=== PATIENT | male | born 1970 | race Caucasian/White ===

== ENCOUNTER → 2021-12-23 | Day surgery (SDC) | payer OTHER ==
[~2021-12-23] VITALS: Ht 188 cm; Wt 111.0 kg
[~2021-12-23] MED LIST: DOXYCYCLINE MO100 MG PO; LISINOPRIL10 MG PO
[2021-12-23 10:32] LABS: HCT 51.1 % (42.0-52.0); HGB 17.8 g/dl (13.2-18.0); MCHC 34.8 g/dL (32.0-36.0); MCV 97.7 fL (78.0-100.0); MPV 10.3 fL (6.0-9.5); RBC 5.23 M/uL (4.70-6.00); WBC 8.3 K/uL (4.0-10.5)
[2021-12-23 11:16] LABS: BUN/CREAT RATIO (CALC) 11.8 RATIO; CREATININE 0.93 mg/dL (0.67-1.17); POTASSIUM 3.9 mmol/L (3.5-5.1)
== END | disposition home or self-care (01) ==
LOC: FAS 09:12
PROVIDERS: Surgery
DX: Z12.11 Encounter for screening for malignant neoplasm of colon (principal); K57.30 Diverticulosis of large intestine without perforation or abscess without bleeding; L05.91 Pilonidal cyst without abscess; L73.2 Hidradenitis suppurativa; I10 Essential (primary) hypertension; E78.5 Hyperlipidemia, unspecified; J44.9 Chronic obstructive pulmonary disease, unspecified; F17.210 Nicotine dependence, cigarettes, uncomplicated; Z79.899 Other long term (current) drug therapy; Z88.5 Allergy status to narcotic agent; Z91.018 Allergy to other foods; Z91.040 Latex allergy status
CPT/HCPCS: 36415; 80048; J1610; J2704; J7120